=== PATIENT | female | born 1940 | race Caucasian/White ===

== ENCOUNTER 2019-10-30 14:47 | Emergency (ER) | payer MEDICARE, OTHER, SELFPAY ==
[2019-10-30 14:53] VITALS: BP 178/77; PULSE 71; RESP 14; TEMP 36.5; O2SAT 98; BMI 20.9
--- NOTE | 2019-10-30 14:54 | DI.RAD.S_ITS ---
PROCEDURE: XR WRIST LT MIN 3V INDICATIONS: injury, swelling and pain TECHNIQUE: 3 views of the wrist were acquired. COMPARISON: [facility], CR, HAND 2V LEFT, 11/10/2012, 11:38. FINDINGS: Bones: There is a mildly comminuted fracture identified involving the distal radial metaphysis with slight dorsal impaction. Articular surface involvement is present without definitive offset appreciated. There may be extension into the distal radioulnar joint, as well. No additional acute fractures are evident. No suspicious osseous lesions or dislocations are evident. Mild degenerative changes of the wrist joints are noted. No osseous erosions are appreciated. The bone mineralization is diffusely decreased. Soft tissues: Chondrocalcinosis is evident along the expected location of the triangular fibrocartilage disc. There is soft tissue swelling about the wrist, which is more pronounced posteriorly. No unexpected radiopaque foreign bodies are evident. IMPRESSION: 1. Minimally displaced intra-articular distal radius fracture. 2. 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 Dictated by: Francisco Larkin M.D. on 10/30/2019 at 14:23 Approved by: Francisco Larkin M.D. on 10/30/2019 at 14:25
[2019-10-30 15:17] VITALS: PULSE 79
--- NOTE | 2019-10-30 15:38 | ED.UPPEXIN ---
HPI - Extremity Injury (Upper) <Anna Cohen PA-C - Last Filed: 10/31/19 00:05> General Chief Complaint: Extremity Injury, Upper Stated Complaint: Fell On Tennis Court, Left Wrist Injury Time Seen by Provider: 10/30/19 15:00 Source: patient Mode of arrival: Ambulatory Limitations: no limitations History of Present Illness HPI narrative: This is a 78-year-old woman with a history of memory loss, otherwise generally healthy who presents to the emergency department with her complaining of left wrist pain after sustaining a fall while on the tennis court today. She says that she was swinging with her right hand and she turned too fast and ended up losing her balance and getting her feet tangled and fell down and backwards catching herself with her left hand behind her on the court. She said that she also after she had caught herself there ended up hitting the back of her head as well. She has no complaint of neck pain, no headache, no vision changes, denies any loss of consciousness, per those who were present at the time she had no abnormal mentation afterwards. She does not take any blood thinners. Her biggest complaint is pretty significant possibly 7/10 left wrist pain. She does endorse some tingling in her fingertips and coming up into her hand and wrist. She says she has never had surgery or broken a bone in this area before. She denies any other injuries, states she has been in her normal state of health recently. [place] she does not get her medical care here normally. He notes it has been a very long time since she has had anything that is an opioid type of pain medicine and given her recent issues with memory they agree that it may be best to avoid this at least as an IV medicine. She says that as far she knows her kidney function is fine. complaint: injury to: left and wrist Onset (ago): hour(s) (1) Other injuries: head (hit back of head but no pain or sx) Handedness: right Place: outdoors Severity: moderate Severity scale (1-10): 7 Relieving factors: cold therapy and immobilization Exacerbating factors: movement of extremity Context: fall and sports-related injury Associated symptoms: numbness (tingling in fingers and hand/wrist) Related Data Home Medications Medication Instructions Recorded Confirmed donepezil [Aricept] 30 mg PO HS #0 10/25/16 10/12/17 memantine [Namenda] 10 mg PO HS #0 10/25/16 10/12/17 Allergies Allergy/AdvReac Type Severity Reaction Status Date / Time iodine [IODINE] Allergy Mild RASH Verified 10/30/19 14:52 methantheline [METHANTHELINE] Allergy Mild RASH Verified 10/30/19 14:52 Review of Systems <Anna Cohen PA-C - Last Filed: 10/31/19 00:05> Review of Systems Narrative: GENERAL: Denies chills, fatigue, malaise, fever, sweats. HEENT: Denies sinus pain, ear pain, sore throat, difficulty swallowing, dizziness. RESPIRATORY: Denies dyspnea, cough, wheezing, hemoptysis, sputum. CARDIOVASCULAR: Denies chest pain, palpitations, orthopnea, edema, GASTROINTESTINAL: Denies nausea, vomiting, abdominal pain, diarrhea, constipation, melena. : Denies dysuria, frequency, incontinence, hematuria, urinary retention. MUSCULOSKELETAL: Positive for left wrist pain, denies any other weakness, joint pain, or bony pain SKIN: Denies rash, skin lesions, or other NEUROLOGIC: Denies weakness, headache, numbness, change in speech, confusion, seizures, incoordination. PSYCHIATRIC: No concerning psychosocial issues. 12 point review of systems is negative except for those stated above Patient History <Anna Cohen PA-C - Last Filed: 10/31/19 00:05> Social History Smoking Status: Never smoker Smoking Status: Never smoker Exam <Anna Cohen PA-C - Last Filed: 10/31/19 00:05> Narrative Exam Narrative: GENERAL: 78 year old patient appears stated age. Well-nourished, well-developed patient, in mild distress. HEAD: Atraumatic. Normocephalic. EYES: Pupils equal round and reactive. Extraocular motions intact. No scleral icterus. No injection or drainage. ENT: Nose without bleeding, purulent drainage. Throat without erythema, tonsillar hypertrophy or exudate. Airway patent. NECK: Trachea midline. C-spine and neck are Non tender. Full active range of motion of C-spine, pain-free CARDIOVASCULAR: Regular rate and rhythm without murmurs, gallops, or rubs. RESPIRATORY: Clear to auscultation. Breath sounds equal bilaterally. No wheezes, rales, or rhonchi. GASTROINTESTINAL: Abdomen soft, non-tender, nondistended. EXTREMITIES: There is [id number] swelling of the Left lateral wrist with no obvious deformity, capillary refill is intact 2+ on the distal fingers of the affected left hand, there is no tenderness with palpation of the metacarpals, there is tenderness of the radius distal to the site of injury and up to the mid shaft and just proximal to the mid shaft of the radius, the ulna is nontender. The elbow is nontender. She is able to move all fingers of the affected hand she is able to make a fist but not close it completely 2nd the pain she is able to extend the fingers she is able to move the thumb. Temperature of the affected hand and skin color is the same as the unaffected hand. No other edema or joint tenderness. BACK: Nontender without deformity or crepitance. No flank tenderness. NEURO: AOx3. SKIN: No rash or erythema of visible areas Initial Vital Signs Initial Vital Signs: Vital Signs Temperature 97.7 F 10/30/19 14:53 Pulse Rate 71 10/30/19 14:53 Respiratory Rate 14 10/30/19 14:53 Blood Pressure 178/77 H 10/30/19 14:53 Pulse Oximetry 98 10/30/19 14:53 <Alba Archuleta DO - Last Filed: 11/04/19 07:33> Initial Vital Signs Initial Vital Signs: Vital Signs Temperature 97.7 F 10/30/19 14:53 Pulse Rate 71 10/30/19 14:53 Respiratory Rate 14 10/30/19 14:53 Blood Pressure 178/77 H 10/30/19 14:53 Pulse Oximetry 98 10/30/19 14:53 Scores <Anna Cohen PA-C - Last Filed: 10/31/19 00:05> GCS [place] coma scale eye opening: Spontaneous [place] coma scale verbal response: Orientated [place] coma scale motor response: Obey commands [place] coma scale total score: 15 Nexus Score for C-Spine Focal Neurologic deficit present: No Midline spinal tenderness present: No Altered level of conciousness present: No Intoxication present: No Distracting Injury Present: No (C-spine reassessed after wrist pain controlled with medication, and remains nontender) Nexus Criteria for C-spine: 0 Course <Anna Cohen PA-C - Last Filed: 10/31/19 00:05> Orders Ordered: Discontinued Medications Ketorolac Tromethamine (Toradol) 15 mg IM NOW ONE Stop: 10/30/19 15:53 Last Admin: 10/30/19 16:05 Dose: 15 mg Documented by: ESCOBAR Vital Signs Vital signs: Vital Signs - 8 hr 10/30/19 17:13 Pulse Rate 61 Respiratory Rate 16 Blood Pressure 167/81 H Pulse Oximetry 100 <Alba Archuleta DO - Last Filed: 11/04/19 07:33> Orders Ordered: Discontinued Medications Ketorolac Tromethamine (Toradol) 15 mg IM NOW ONE Stop: 10/30/19 15:53 Last Admin: 10/30/19 16:05 Dose: 15 mg Documented by: ESCOBAR Vital Signs Vital signs: Vital Signs - 8 hr 10/30/19 17:13 Pulse Rate 61 Respiratory Rate 16 Blood Pressure 167/81 H Pulse Oximetry 100 MDM - Extremity Injury (Upper) <Anna Cohen PA-C - Last Filed: 10/31/19 00:05> Differential Diagnosis Differential diagnosis: Likely sprain and strain of wrist, fracture of wrist, fracture of hand and other (Vascular injury, nerve injury) Medical Records Attestation: I reviewed the patient's medical records. Imaging Data Extremity x-ray #1: Attestation: I personally reviewed and interpreted this imaging study as follows: Radiologist's Impression: [address] [address] XRay Report Signed Patient: Era Mojica EMR#: [id number] : 2Acct:[id number] Age/Sex: 78 / FDate of Service: 10/30/19 Loc: ED Accession Number: [id number] Procedure: XR wrist LT min 3V Ordering Provider: Alba Archuleta D.O. PROCEDURE: XR WRIST LT MIN 3V INDICATIONS: injury, swelling and pain TECHNIQUE: 3 views of the wrist were acquired. COMPARISON: [facility], CR, HAND 2V LEFT, 11/10/2012, 11:38. FINDINGS: Bones: There is a mildly comminuted fracture identified involving the distal radial metaphysis with slight dorsal impaction. Articular surface involvement is present without definitive offset appreciated. There may be extension into the distal radioulnar joint, as well. No additional acute fractures are evident. No suspicious osseous lesions or dislocations are evident. Mild degenerative changes of the wrist joints are noted. No osseous erosions are appreciated. The bone mineralization is diffusely decreased. Soft tissues: Chondrocalcinosis is evident along the expected location of the triangular fibrocartilage disc. There is soft tissue swelling about the wrist, which is more pronounced posteriorly. No unexpected radiopaque foreign bodies are evident. IMPRESSION: 1. Minimally displaced intra-articular distal radius fracture. 2. 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 Dictated by: Francisco Larkin M.D. on 10/30/2019 at 14:23 Approved by: Francisco Larkin M.D. on 10/30/2019 at 14:25 Extremity x-ray #2: Attestation: I personally reviewed and interpreted this imaging study as follows: Radiologist's Impression: [address] [place] [address] XRay Report Signed Patient: Era Mojica EMR#: [id number] : 2Acct:[id number] Age/Sex: 78 / FDate of Service: 10/30/19 Loc: ED Accession Number: [id number] Procedure: XR forearm LT 2V Ordering Provider: Anna Cohen P.A-C PROCEDURE: XR FOREARM RT 2V INDICATIONS: known distal rad fx, radius/ ulnar pain TECHNIQUE: 2 views of the forearm were acquired. COMPARISON: [facility], , XR WRIST LT MIN 3V, 10/30/2019, 13:59. FINDINGS: Bones: An intra-articular mildly displaced fracture of the distal radial metaphysis is identified, better appreciated on the wrist x-ray from the same date. No additional fractures are appreciated. No suspicious osseous lesions or dislocations are evident. Soft tissues: No suspicious soft tissue calcifications or masses. Chondrocalcinosis of the wrist is incidentally noted. IMPRESSION: Minimally displaced distal radial metaphyseal fracture. Dictated by: Francisco Larkin M.D. on 10/30/2019 at 15:45 Approved by: Francisco Larkin M.D. on 10/30/2019 at 15:46 [facility] Narrative Medical decision making narrative: This is a well-appearing generally healthy 78-year-old with a history of memory problems who presents to the emergency department with her after sustaining an injury of her left wrist 2nd to a fall at the tennis court shortly before arrival. Differential diagnoses considered include fracture of the radius, ulna, metacarpals, carpals, elbow injury, nerve injury, vascular injury. Patient did reportedly hit her head however this was likely low impact as it was after she had already caught all of her weight with her left hand/wrist and was partially sitting on the ground, she is not on thinners, after pain was controlled she remained pain-free with C-spine palpation and denied any symptoms concerning for closed head injury, no injury to head or any other area of her body was appreciated on physical exam, with exception of left wrist trauma. Her neuro exam was normal, with full active pain-free range of motion of C-spine. Imaging of head and C spine were not pursued. She has a fracture of the distal radius that is nondisplaced but is affecting the joint line. Orthopedics was consulted and advised of plan to splint the patient and have them follow up, Dr. Moya orthopedics reviewed the patient's imaging and agrees with the plan. Patient is splinted with a sugar-tong splint, reassessed after splinting, her pain was controlled with Toradol in the emergency department, she is advised to alternate Tylenol and ibuprofen for pain she and her both state they prefer no opioid pain medicine prescription, emergency return precautions are provided and all questions are answered. She is advised to follow-up with orthopedic surgery. Discharge Plan Departure Patient Disposition: Home Clinical Impression: Distal radius fracture, left Qualifiers: Encounter type: initial encounter Fracture type: closed Fracture morphology: other intra-articular Qualified Code(s): S52.572A - Other intraarticular fracture of lower end of left radius, initial encounter for closed fracture Discharge Date/Time: 10/30/19 17:26 Instructions: DI for Distal Radius Fracture Activity Restrictions/Additional Instructions: Thank you for letting us be part of your care in the emergency department. There is no evidence of an emergent or life threatening illness at this time, but follow up with your doctor in 1-2 days is recommended nonetheless to continue to rule out serious underlying causes of your symptoms. Please call the office for an appointment. Please return to the Emergency Department for any worsening or persistent symptoms. Please take medications as directed. I recommend you alternate Tylenol and ibuprofen for pain you can take the maximum allowed amount of each of these based on [id number] dosing per day if needed for pain. Please follow-up with Dr. Moya, orthopedic surgeon, in the next 1-3 days. If you have any new or concerning symptoms including change in color of your skin, hand, increased swelling, increased numbness or tingling, significantly increasing pain or anything else of concern to you please do not hesitate to seek medical care. I recommend that you continue icing on and off for the next 24 hours and also wear the sling to keep your wrist up at the level or above your heart this should help with your pain as well. Prescriptions: No Action donepezil [Aricept] 10 MG tablet 30 mg PO HS Qty: 0 RF: 0 memantine [Namenda] 10 MG tablet 10 mg PO HS Qty: 0 RF: 0 Referrals: Boris Moya MD [Physician] - (distal radius fx, intra articular) <Alba Archuleta DO - Last Filed: 11/04/19 07:33> Cosign ED Attending Cosignature Attestation: I was immediately available in the department for consultation. Documentation has been reviewed. I agree with assessment and plan.
--- NOTE | 2019-10-30 15:52 | DI.RAD.S_ITS ---
PROCEDURE: XR FOREARM RT 2V INDICATIONS: known distal rad fx, radius/ ulnar pain TECHNIQUE: 2 views of the forearm were acquired. COMPARISON: [facility], CR, XR WRIST LT MIN 3V, 10/30/2019, 13:59. FINDINGS: Bones: An intra-articular mildly displaced fracture of the distal radial metaphysis is identified, better appreciated on the wrist x-ray from the same date. No additional fractures are appreciated. No suspicious osseous lesions or dislocations are evident. Soft tissues: No suspicious soft tissue calcifications or masses. Chondrocalcinosis of the wrist is incidentally noted. IMPRESSION: Minimally displaced distal radial metaphyseal fracture. Dictated by: Francisco Larkin M.D. on 10/30/2019 at 15:45 Approved by: Francisco Larkin M.D. on 10/30/2019 at 15:46
[2019-10-30] MEDS: KETOROLAC 60 MG/2 ML VIAL 15 MG IM (16:05)
[2019-10-30 17:13] VITALS: BP 167/81; PULSE 61; RESP 16; O2SAT 100
== END 2019-10-30 17:26 | disposition home or self-care (01) ==
PROVIDERS: Emergency Provider Student in an Organized Health Care Education/Training Program
DX: S52.572A Other intraarticular fracture of lower end of left radius, initial encounter for closed fracture (principal); W19.XXXA Unspecified fall, initial encounter
CPT/HCPCS: 73090; 73110; 96372; 99283; J1885